=== PATIENT | female | born 1990 | race Caucasian/White ===

== ENCOUNTER 2022-04-23 15:19 | Emergency (ER) | payer MEDICAID ==
[~2022-04-23] VITALS: Ht 162.6 cm; Wt 122.7 kg
[2022-04-23 15:22] VITALS: BP 149/95
[2022-04-23] MEDS ORDERED: BENZ-38 PO (16:08)
[2022-04-23] MEDS ORDERED: CYCL-1 PO (16:08)
[2022-04-23] MEDS ORDERED: benzonatate 100mg capsule PO ONE (16:10)
== END 2022-04-23 16:26 | disposition home or self-care (01) ==
LOC: ER 15:19
DX: J06.9 Acute upper respiratory infection, unspecified (principal); J45.909 Unspecified asthma, uncomplicated; Z88.0 Allergy status to penicillin; Z79.899 Other long term (current) drug therapy
CPT/HCPCS: 99283

== ENCOUNTER 2023-12-18 15:26 | Emergency (ER) | payer MEDICAID ==
[~2023-12-18] VITALS: Ht 160 cm; Wt 109.1 kg
[~2023-12-18 15:26] MED LIST: CYCL-1 PO
[2023-12-18 15:29] VITALS: TEMP 98.4
[2023-12-18 16:11] LABS: BASOPHILS # (AUTO) 0.1 X10'3 (0-0.2); BASOPHILS % (AUTO) 0.6 % (0-1); EOSINOPHILS # (AUTO) 0.5 X10'3 (0-0.9); EOSINOPHILS % (AUTO) 5.3 % (0-6); HEMATOCRIT 34.4 % (35.0-45.0); LYMPHOCYTES # (AUTO) 2.6 X10'3 (1.1-4.8); LYMPHOCYTES % (AUTO) 27.3 % (21-51); MEAN CORPUSCULAR HEMOGLOBIN 21.8 PG (27.0-31.0); MEAN CORPUSCULAR HGB CONC 32.1 g/dL (33.0-36.5); MEAN CORPUSCULAR VOLUME 67.8 FL (78-98); MEAN PLATELET VOLUME 7.1 FL (7.4-10.4); MONOCYTES # (AUTO) 0.4 X10'3 (0-0.9); MONOCYTES % (AUTO) 4.2 % (2-12); NEUTROPHILS # (AUTO) 5.9 X10'3 (1.8-7.7); NEUTROPHILS % (AUTO) 62.6 % (42-75); PLATELET COUNT 340 X10'3 (140-440); RED BLOOD COUNT 5.08 X10'6 (4.20-5.60); WHITE BLOOD COUNT 9.4 X10'3 (4.5-11.0)
[2023-12-18 16:29] LABS: ALANINE AMINOTRANSFERASE 29 U/L (12-78); ALBUMIN 3.8 G/DL (3.4-5.0); ALBUMIN/GLOBULIN RATIO 1.1 (1.1-1.5); ALKALINE PHOSPHATASE 76 IU/L (46-116); ANION GAP 10 (8-16); ASPARTATE AMINO TRANSFERASE 14 U/L (10-37); BILIRUBIN,TOTAL 0.3 MG/DL (0.1-1.0); BLOOD UREA NITROGEN 14 MG/DL (7-18); BUN/CREATININE RATIO 14.4 (10.0-20.0); CALCIUM 8.6 MG/DL (8.5-10.1); CHLORIDE 105 MMOL/L (99-107); CREATININE 0.97 MG/DL (0.40-0.90); GLUCOSE 106 MG/DL (70-104); LIPASE 51 U/L (16-77); POTASSIUM 3.9 MMOL/L (3.5-5.1); SODIUM 140 MMOL/L (135-145); TOTAL CARBON DIOXIDE 25.3 MMOL/L (24-32); TOTAL PROTEIN 7.2 G/DL (6.4-8.2); eCRCL 67 ML/MIN; eGFR 65 ML/MIN
[2023-12-18 16:36] LABS: PLATELET ESTIMATE NORMAL
[2023-12-18 16:37] LABS: ELLIPTOCYTES FEW; HYPOCHROMASIA 1+; MICROCYTOSIS 2+; TEAR DROP CELLS FEW
[2023-12-18 16:38] LABS: ANISOCYTOSIS FEW
[2023-12-18 18:51] LABS: URINE HCG NEGATIVE (NEG)
[2023-12-18 18:52] LABS: BILIRUBIN,URINE NEGATIVE (Neg); CLARITY,URINE CLEAR (Clear); COLOR,URINE YELLOW (Yellow); GLUCOSE, URINE NEGATIVE (Neg); KETONES,URINE NEGATIVE (Neg); LEUKOCYTE ESTERASE ,URINE NEGATIVE (Neg); OCCULT BLOOD,URINE NEGATIVE (Neg); PROTEIN,URINE NEGATIVE (Neg); UROBILINOGEN,URINE 0.2 E.U/dL (0.2-1.0)
[2023-12-18 18:57] LABS: NITRITES, URINE NEGATIVE (Neg); UA COLLECTION TYPE CLN CATCH MIDSTREAM
[2023-12-18 19:39] VITALS: BP 115/76; PULSE 83; O2SAT 98
[2023-12-18 20:03] VITALS: RESP 16
== END 2023-12-18 20:37 | disposition home or self-care (01) ==
LOC: ER 15:27
DX: R10.31 Right lower quadrant pain (principal); J45.909 Unspecified asthma, uncomplicated; Z88.0 Allergy status to penicillin
CPT/HCPCS: 36415; 80053; 81003; 81025; 83690; 85008; 85025; 99283